=== PATIENT | female | born 1950 | race Caucasian/White ===

== ENCOUNTER 2017-07-11 10:12 | Day surgery (SDC) | payer MEDICARE, OTHER ==
[2017-07-11] MEDS ORDERED: PROPOFOL 60 ML (11:45)
[2017-07-11] MEDS ORDERED: LIDOCAINE 2% (SDV) 5 ML INJ (11:45)
== END 2017-07-11 17:36 | disposition home or self-care (01) ==
LOC: GIL 10:12
DX: Z12.11 Encounter for screening for malignant neoplasm of colon (principal); K29.70 Gastritis, unspecified, without bleeding; K57.90 Diverticulosis of intestine, part unspecified, without perforation or abscess without bleeding; K64.8 Other hemorrhoids; I25.10 Atherosclerotic heart disease of native coronary artery without angina pectoris; I10 Essential (primary) hypertension; E78.5 Hyperlipidemia, unspecified; E66.9 Obesity, unspecified; Z68.35 Body mass index [BMI] 35.0-35.9, adult
CPT/HCPCS: 43239; 82962; 87081

== ENCOUNTER 2017-09-23 15:40 | Emergency (ER) | payer MEDICARE, OTHER ==
[2017-09-23 19:11] LABS: ADD MAN DIFF? NO
[2017-09-23] MEDS: morphine 4 MG/ML VIAL IV (19:12)
[2017-09-23] MEDS: SOD CHLORIDE 0.9% 1,000 ML IV (19:12)
[2017-09-23] MEDS: ONDANSETRON 4 MG INJ IV (19:12)
[2017-09-23 19:14] LABS: BASOPHILS % 0.5 % (0.0-2.0); EOSINOPHILS # 0.1 10^3/ul (0.0-0.5); EOSINOPHILS % 2.9 % (0.0-7.0); HEMATOCRIT 42.1 % (37.0-47.0); HEMOGLOBIN 13.5 g/dl (12.0-16.0); LYMPHOCYTES # 1.2 10^3/ul (0.8-2.9); LYMPHOCYTES % 29.5 % (15.0-51.0); MEAN CORPUSCULAR HEMOGLOBIN 29.7 pg (29.0-33.0); MEAN CORPUSCULAR HGB CONC 32.1 g/dl (32.0-37.0); MEAN CORPUSCULAR VOLUME 92.5 fl (82.0-101.0); MEAN PLATELET VOLUME 10.4 fl (7.4-10.4); MONOCYTE # 0.5 10^3/ul (0.3-0.9); MONOCYTES % 11.3 % (0.0-11.0); NEUTROPHIL # 2.3 10^3/ul (1.6-7.5); NEUTROPHILS % 54.8 % (39.0-77.0); PLATELET COUNT 170 10^3/UL (140-415); RED BLOOD COUNT 4.55 10^6/ul (4.20-5.40); RED CELL DISTRIBUTION WIDTH 13.2 % (11.5-14.5)
[2017-09-23 19:14] LABS: WHITE BLOOD COUNT 4.2 10^3/ul (4.8-10.8)
[2017-09-23 19:19] LABS: ADD UMIC NO; UR ASCORBIC ACID NEGATIVE (NEGATIVE); UR BILIRUBIN (Dip) NEGATIVE (NEGATIVE); UR BLOOD (Dip) NEGATIVE (NEGATIVE); UR CLARITY CLEAR (CLEAR); UR COLOR STRAW (YELLOW); UR GLUCOSE (Dip) 2+ mg/dL (NEGATIVE); UR KETONES (Dip) NEGATIVE (NEGATIVE); UR LEUKOCYTE ESTERASE (Dip) NEGATIVE Leu/ul (NEGATIVE); UR NITRITE (Dip) NEGATIVE (NEGATIVE); UR TOTAL PROTEIN (Dip) NEGATIVE (NEGATIVE); UR UROBILINOGEN (Dip) NEGATIVE (NEGATIVE)
[2017-09-23 19:30] LABS: ALANINE AMINOTRANSFERASE 42 IU/L (13-69); ALBUMIN 4.2 g/dl (3.3-4.9); ALKALINE PHOSPHATASE 167 IU/L (42-121); AMYLASE 89 U/L (11-123); ASPARTATE AMINO TRANSFERASE 42 IU/L (15-46); BILIRUBIN,INDIRECT 0.2 mg/dl (0-1.1); BILIRUBIN,TOTAL 0.2 mg/dl (0.2-1.3); BLOOD UREA NITROGEN 12 mg/dl (7-20); CALCIUM 9.3 mg/dl (8.4-10.2); CARBON DIOXIDE 27 mmol/L (21-31); CHLORIDE 106 mmol/L (97-110); CREATININE 0.79 mg/dl (0.44-1.00); GLUCOSE 172 mg/dl (70-220); LIPASE 270 U/L (23-300); SODIUM 144 mmol/L (135-144); TOTAL PROTEIN 8.4 g/dl (6.1-8.1)
[2017-09-23 19:41] LABS: PARTIAL THROMBOPLASTIN TIME 30.4 Sec (25.0-35.0); PROTIME 12.2 Sec (11.9-14.9)
[2017-09-23 19:52] LABS: ANION GAP 15 (8-16); TROPONIN-I < 0.012 ng/ml (0.000-0.120)
== END 2017-09-24 00:02 | disposition home or self-care (01) ==
LOC: E/R 09-24 00:02
DX: G51.0 Bell's palsy (principal); E11.9 Type 2 diabetes mellitus without complications; I25.10 Atherosclerotic heart disease of native coronary artery without angina pectoris; I10 Essential (primary) hypertension; R07.9 Chest pain, unspecified; Z79.4 Long term (current) use of insulin; Z79.82 Long term (current) use of aspirin; Z95.0 Presence of cardiac pacemaker
CPT/HCPCS: 70450; 80053; 81003; 82150; 83690; 84484; 85025; 85610; 85730; 87086; 93005; 96374; 96375; 99285-25

== ENCOUNTER 2018-05-01 09:32 | Emergency (ER) | payer MEDICARE, OTHER ==
[2018-05-01] MEDS: ACETAMINOPHEN 500 MG TAB PO (10:20)
== END 2018-05-01 11:04 | disposition home or self-care (01) ==
LOC: FTE 09:32
DX: R05 Cough (principal); I10 Essential (primary) hypertension; I25.10 Atherosclerotic heart disease of native coronary artery without angina pectoris; E11.9 Type 2 diabetes mellitus without complications; Z79.4 Long term (current) use of insulin
CPT/HCPCS: 71045; 93005; 99284-25